=== PATIENT | female | born 1950 | race Hispanic/Latino ===

== ENCOUNTER 2018-02-22 20:13 | Emergency (ER) | payer MEDICARE, BC ==
[2018-02-22 20:29] VITALS: TEMP 98.2
--- NOTE | 2018-02-22 20:53 | ED PDOC ---
HPI: Hypertension/Hypotension Time Seen by Provider: 02/22/18 20:40 Chief Complaint (Nursing): High Blood Pressure Chief Complaint (Provider): my pressure is high History Per: Patient, Family (brother) History/Exam Limitations: no limitations Onset/Duration Of Symptoms: Days (2-3 days), Intermittent Episodes Associated Symptoms: Other (jaw discomfort). denies: Chest Pain, Dyspnea, Dizziness, Blurred Vision, Headache Quality Of Symptoms: Asymptomatic Severity: Mild Exacerbating Factor(s): Pos: None Additional Complaint(s): 67yo female presents w concern her BP is running 180+ systolic at home. States went to [facility] for ear ache about 2 weeks ago, found to have elev BP 160/90, now has been checking it frequently at home and been gradually elevating, now 180+ at home. She notes mild L jaw discomfort but thinks that could be due to dental work recently performed. Denies taking decongestants, supplements or prior BP medications. Only takes crestor daily. Denies chest pain, SOB, headache, orthopnea, edema or exercise intolerance. Past Medical History Reviewed: Historical Data, Nursing Documentation, Vital Signs Vital Signs: Last Vital Signs Temp 98.2 F 02/22/18 20:24 Pulse 89 02/22/18 20:24 Resp 16 02/22/18 20:24 BP 181/83 H 02/22/18 20:24 Pulse Ox 100 02/22/18 20:24 - Medical History PMH: Hypercholesterolemia Denies: HTN - Surgical History Other surgeries: hysterectomy - Family History Family History: States: Unknown Family Hx - Living Arrangements Living Arrangements: With Family - Immunization History Hx Tetanus Toxoid Vaccination: No Hx Influenza Vaccination: No Hx Pneumococcal Vaccination: No - Home Medications Home Medications: Ambulatory Orders Medication Instructions Recorded hydroCHLOROthiazide [Microzide] 12.5 mg PO DAILY #14 cap 02/22/18 - Allergies Allergies/Adverse Reactions: Allergies Allergy/AdvReac Type Severity Reaction Status Date / Time No Known Allergies Allergy Verified 02/22/18 20:24 Review of Systems Constitutional: Negative for: Fever, Chills Eyes: Negative for: Vision Change ENT: Negative for: Nose Discharge, Throat Pain Cardiovascular: Negative for: Chest Pain, Palpitations, Orthopnea Respiratory: Negative for: Cough, Shortness of Breath Gastrointestinal: Negative for: Nausea, Vomiting Genitourinary Female: Negative for: Dysuria Musculoskeletal: Negative for: Neck Pain, Shoulder Pain, Arm Pain, Back Pain, Leg Pain Skin: Negative for: Rash, Lesions, Jaundice Neurological: Negative for: Weakness, Numbness, Headache, Dizziness Psych: Negative for: Suicidal ideation Physical Exam - Reviewed Nursing Documentation Reviewed: Yes Vital Signs Reviewed: Yes - Physical Exam Appears: Positive for: Well, Non-toxic, No Acute Distress Head Exam: Positive for: ATRAUMATIC, NORMAL INSPECTION, NORMOCEPHALIC Skin: Positive for: Normal Color, Warm, DRY Eye Exam: Positive for: EOMI, Normal appearance, PERRL ENT: Positive for: TM Is/Are (cerumen). Negative for: Pharyngeal Erythema Neck: Positive for: Normal, Painless ROM Cardiovascular/Chest: Positive for: Regular Rate, Rhythm Respiratory: Positive for: Normal Breath Sounds. Negative for: Decreased Breath Sounds Gastrointestinal/Abdominal: Positive for: Normal Exam, Soft. Negative for: Tenderness Back: Positive for: Normal Inspection Extremity: Positive for: Normal ROM. Negative for: Tenderness, Swelling Neurologic/Psych: Positive for: Alert, Oriented. Negative for: Motor/Sensory Deficits - Laboratory Results Result Diagrams: 02/22/18 20:55 02/22/18 20:55 - ECG ECG: Positive for: Interpreted By Me ECG Rhythm: Positive for: Normal ST Segment, Sinus Rhythm. Negative for: ST/T Changes Rate: 78 O2 Sat by Pulse Oximetry: 100 Pulse Ox Interpretation: Normal Medical Decision Making Medical Decision Making: pt mostly asymptomatic other than vague jaw symptoms. check basic labs, EKG and trop, initiate clonidine 0.1mg and monitor. labs and EKG unremarkable clonidine 0.1mg given w improvement of BP, Rx low dose HCTZ and followup PMD 1 week for re-eval. Asymptomatic on discharge. Disposition - Clinical Impression Clinical Impression: Elevated blood pressure reading - Patient ED Disposition Is Patient to be Admitted: No Counseled Patient/Family Regarding: Studies Performed, Diagnosis, Need For Followup, Rx Given - Disposition Disposition: Routine/Home Disposition Time: 21:39 Condition: STABLE Additional Instructions: followup with your doctor within next 10 days, take medication once a day, return to ER for any worse or new symptoms. Prescriptions: hydroCHLOROthiazide [Microzide] 12.5 mg PO DAILY #14 cap Instructions: Hypotension (ED), Hypertension (ED) Forms: [employer] (Polish)
[2018-02-22 21:16] LABS: BASO % 0.5 % (0.0-2.0); EOS # 0.1 K/uL (0.0-0.7); EOS % 0.8 % (0.0-4.0); HEMOGLOBIN 11.9 g/dL (12.0-16.0); LYMPH # 1.1 K/uL (1.0-4.3); LYMPH % 15.8 % (20.0-40.0); MEAN CELL VOLUME 91.5 fl (81.0-99.0); MEAN CORPUSCULAR HEMOGLOBIN 30.8 pg (27.0-31.0); MEAN CORPUSCULAR HGB CONC 33.6 g/dL (33.0-37.0); MEAN PLATELET VOLUME 8.7 fl (7.2-11.7); MONO # 0.5 K/uL (0.0-0.8); MONO % 6.4 % (0.0-10.0); NEUT # 5.4 K/uL (1.8-7.0); NEUT % 76.5 % (50.0-75.0); NRBC % 0.1 % (0.0-0.0); RBC 3.88 Mil/uL (3.80-5.20); RED CELL DISTRIBUTION WIDTH 13.7 % (11.5-14.5); WHITE BLOOD COUNT 7.1 K/uL (4.8-10.8)
[2018-02-22 21:25] LABS: BLOOD UREA NITROGEN 13 mg/dl (7-17); CALCIUM 9.1 mg/dL (8.4-10.2); GFR NON-AFRICAN AMERICAN > 60
[2018-02-22 21:38] LABS: B-TYPE NATRIURETIC PEPTIDE 490 pg/ml (0-900)
[2018-02-22 21:39] VITALS: PULSE 78; O2SAT 100
[2018-02-22 21:50] VITALS: BP 162/85; RESP 17
--- NOTE | 2018-02-23 10:39 | CARD ---
APPROVED REPORT Date of service: 02/22/2018 EKG Measurement Heart [id number] <Conclusion> Normal sinus rhythm Normal ECG
== END 2018-02-22 21:51 | disposition home or self-care (01) ==
LOC: H.ER 20:13
DX: I10 Essential (primary) hypertension (principal)

== ENCOUNTER 2018-02-27 09:39 | Emergency (ER) | payer MEDICARE, BC ==
[2018-02-27 09:44] VITALS: TEMP 98.2
--- NOTE | 2018-02-27 10:06 | ED PDOC ---
HPI: General Adult Time Seen by Provider: 02/27/18 09:48 History Per: Patient Onset/Duration Of Symptoms: Days (1) Current Symptoms Are (Timing): Still Present Severity: Mild Additional Complaint(s): Left sided jaw pain since last night. Denies injury. Denies toothache. Denies chest pain or SOB. Seen here 02/21 for HTN and started on BP meds. Denies headache or dizziness. Past Medical History Vital Signs: Last Vital Signs Temp 98.2 F 02/27/18 09:43 Pulse 98 H 02/27/18 09:43 Resp 21 02/27/18 09:43 BP 195/94 H 02/27/18 09:43 Pulse Ox 99 02/27/18 09:43 - Medical History PMH: HTN Denies: Hypercholesterolemia - Family History Family History: States: Unknown Family Hx - Immunization History Hx Tetanus Toxoid Vaccination: No Hx Influenza Vaccination: No Hx Pneumococcal Vaccination: No - Home Medications Home Medications: Ambulatory Orders Medication Instructions Recorded hydroCHLOROthiazide [Microzide] 12.5 mg PO DAILY #14 cap 02/22/18 - Allergies Allergies/Adverse Reactions: Allergies Allergy/AdvReac Type Severity Reaction Status Date / Time No Known Allergies Allergy Verified 02/22/18 20:24 Review of Systems ROS Statement: Except As Marked, All Systems Reviewed And Found Negative ENT: Positive for: Other (Jaw pain) Cardiovascular: Negative for: Chest Pain Respiratory: Negative for: Shortness of Breath Neurological: Negative for: Weakness, Numbness, Headache Physical Exam - Reviewed Nursing Documentation Reviewed: Yes Vital Signs Reviewed: Yes - Physical Exam Appears: Positive for: Non-toxic, No Acute Distress Head Exam: Positive for: ATRAUMATIC, NORMAL INSPECTION, NORMOCEPHALIC Skin: Positive for: Normal Color, Warm, DRY Eye Exam: Positive for: EOMI, Normal appearance, PERRL ENT: Positive for: Normal ENT Inspection, Other (No mandibular tenderness or deformity) Neck: Positive for: Normal, Painless ROM Cardiovascular/Chest: Positive for: Regular Rate, Rhythm Respiratory: Positive for: CNT, Normal Breath Sounds Gastrointestinal/Abdominal: Positive for: Normal Exam, Soft Back: Positive for: Normal Inspection Extremity: Positive for: Normal ROM Neurologic/Psych: Positive for: Alert, Oriented - Laboratory Results Result Diagrams: 02/27/18 10:45 02/27/18 10:45 - ECG O2 Sat by Pulse Oximetry: 99 Disposition - Clinical Impression Clinical Impression: Hypertension - Patient ED Disposition Is Patient to be Admitted: No Counseled Patient/Family Regarding: Studies Performed, Diagnosis, Need For Followup - Disposition Disposition: Routine/Home Disposition Time: 11:59 Condition: FAIR Instructions: High Blood Pressure in Adults
[2018-02-27 11:04] LABS: BASO % 0.3 % (0.0-2.0); EOS % 0.2 % (0.0-4.0); HEMOGLOBIN 12.6 g/dL (12.0-16.0); LYMPH # 0.8 K/uL (1.0-4.3); LYMPH % 13.4 % (20.0-40.0); MEAN CELL VOLUME 91.9 fl (81.0-99.0); MEAN CORPUSCULAR HEMOGLOBIN 31.1 pg (27.0-31.0); MEAN CORPUSCULAR HGB CONC 33.9 g/dL (33.0-37.0); MONO # 0.4 K/uL (0.0-0.8); MONO % 5.9 % (0.0-10.0); NEUT # 4.8 K/uL (1.8-7.0); NEUT % 80.2 % (50.0-75.0); NRBC % 0.1 % (0.0-0.0); RBC 4.04 Mil/uL (3.80-5.20); RED CELL DISTRIBUTION WIDTH 13.4 % (11.5-14.5)
[2018-02-27 11:18] LABS: ALB/GLOB RATIO 1.3 (1.0-2.1); ALBUMIN 4.4 g/dL (3.5-5.0); ALT/SGPT 29 U/L (9-52); AST/SGOT 29 U/L (14-36); BLOOD UREA NITROGEN 11 mg/dl (7-17); CALCIUM 9.6 mg/dL (8.4-10.2); GFR NON-AFRICAN AMERICAN > 60
[2018-02-27 12:17] VITALS: BP 142/87; PULSE 72; RESP 16; O2SAT 100
--- NOTE | 2018-02-27 19:04 | CARD ---
APPROVED REPORT Date of service: 02/27/2018 EKG Measurement Heart [id number] ND 110P0 [id number] <Conclusion> Sinus rhythm with short ND with premature supraventricular complexes Nonspecific ST and T wave abnormality Abnormal ECG
== END 2018-02-27 12:10 | disposition home or self-care (01) ==
LOC: H.ER 09:39
DX: I10 Essential (primary) hypertension (principal)

== ENCOUNTER 2018-03-11 16:58 | Emergency (ER) | payer MEDICARE, BC ==
[2018-03-11 17:07] VITALS: O2SAT 100
[2018-03-11 17:36] LABS: BASO % 0.5 % (0.0-2.0); EOS % 0.2 % (0.0-4.0); HEMOGLOBIN 12.8 g/dL (12.0-16.0); LYMPH # 1.1 K/uL (1.0-4.3); LYMPH % 11.6 % (20.0-40.0); MEAN CELL VOLUME 89.5 fl (81.0-99.0); MEAN CORPUSCULAR HEMOGLOBIN 30.3 pg (27.0-31.0); MEAN CORPUSCULAR HGB CONC 33.8 g/dL (33.0-37.0); MEAN PLATELET VOLUME 8.3 fl (7.2-11.7); MONO # 0.7 K/uL (0.0-0.8); MONO % 7.2 % (0.0-10.0); NEUT # 7.3 K/uL (1.8-7.0); NEUT % 80.5 % (50.0-75.0); RBC 4.22 Mil/uL (3.80-5.20); RED CELL DISTRIBUTION WIDTH 13.2 % (11.5-14.5); WHITE BLOOD COUNT 9.1 K/uL (4.8-10.8)
[2018-03-11 17:49] LABS: BLOOD UREA NITROGEN 11 mg/dl (7-17); CALCIUM 9.7 mg/dL (8.4-10.2); GFR NON-AFRICAN AMERICAN > 60
--- NOTE | 2018-03-11 17:55 | ED PDOC ---
HPI: Chest Pain Time Seen by Provider: 03/11/18 17:20 Chief Complaint (Nursing): Chest Pain Chief Complaint (Provider): Chest discomfort History Per: Patient History/Exam Limitations: no limitations Onset/Duration Of Symptoms: Intermittent Episodes (since December 2017) Current Symptoms Are (Timing): Better Quality: Pressure Additional History Per: Patient Additional Complaint(s): 67yo female, with history of hypertension, comes to ER reporting intermittent episodes of chest discomfort, present since December 2017. Patient states she initially had the chest discomfort as well as left sided jaw discomfort for which she was evaluated in this ER twice. Patient was noted to have hypertension during her first ER visit and was started on anti-hypertensive medications. Patient states the discomfort "cleared up" but upon visit to her PMD 3 days ago, she had the discomfort and was given Cipro as well as Losartan 5mg. Patient states upon taking the Cipro dose this morning, she felt the "discomfort" in her chest and left jaw, prompting her visit. Otherwise, patient denies any fever, chills, shortness of breath, vomiting, cough, or syncope. She has no additional complaints. PMD: Dr. Hopper Past Medical History Reviewed: Historical Data, Nursing Documentation, Vital Signs Vital Signs: Last Vital Signs Temp 98.1 F 03/11/18 17:07 Pulse 78 03/11/18 17:33 Resp 16 03/11/18 17:20 BP 146/86 03/11/18 17:33 Pulse Ox 100 03/11/18 17:20 - Medical History PMH: HTN Denies: Hypercholesterolemia - Surgical History Surgical History: No Surg Hx - Family History Family History: States: [place] (father due to [place] at age 53), Hypertension - Living Arrangements Living Arrangements: With Family - Social History Current smoker - smoking cessation education provided: No Alcohol: None Drugs: Denies - Immunization History Hx Tetanus Toxoid Vaccination: No Hx Influenza Vaccination: No Hx Pneumococcal Vaccination: No - Home Medications Home Medications: Ambulatory Orders Medication Instructions Recorded hydroCHLOROthiazide [Microzide] 12.5 mg PO DAILY #14 cap 02/22/18 - Allergies Allergies/Adverse Reactions: Allergies Allergy/AdvReac Type Severity Reaction Status Date / Time No Known Allergies Allergy Verified 02/22/18 20:24 VALENTINO Risk Score for UA/NSTEMI - VALENTINO Risk Score Age > 64: YES 3 or more CAD Risk Factors: NO Known CAD (Stenosis greater than 50%): NO Aspirin use in past 7 days: NO Severe Angina: NO EKG ST changes greater than 0.5mm: NO Positive Cardiac Marker: NO VALENTINO Score: 1 Risk %: 5% Review of Systems ROS Statement: Except As Marked, All Systems Reviewed And Found Negative Constitutional: Negative for: Fever, Chills Cardiovascular: Positive for: Other (chest discomfort) Respiratory: Negative for: Cough, Shortness of Breath Gastrointestinal: Negative for: Nausea, Vomiting Neurological: Negative for: Other (syncope) Physical Exam - Reviewed Nursing Documentation Reviewed: Yes Vital Signs Reviewed: Yes - Physical Exam Appears: Positive for: Non-toxic, No Acute Distress Head Exam: Positive for: ATRAUMATIC, NORMAL INSPECTION, NORMOCEPHALIC Skin: Positive for: Normal Color, Warm, DRY Eye Exam: Positive for: EOMI, Normal appearance, PERRL ENT: Positive for: Normal ENT Inspection Neck: Positive for: Normal, Painless ROM, Supple Cardiovascular/Chest: Positive for: Regular Rate, Rhythm, Chest Non Tender. Negative for: Murmur Respiratory: Positive for: Normal Breath Sounds. Negative for: Wheezing, Resp iratory Distress Pulses-Radial (R): 2+ Gastrointestinal/Abdominal: Positive for: Normal Exam, Soft. Negative for: Tenderness, Mass, Rebound Back: Positive for: Normal Inspection Extremity: Positive for: Normal ROM. Negative for: Pedal Edema, Deformity Neurologic/Psych: Positive for: Alert, Oriented. Negative for: Motor/Sensory Deficits - Laboratory Results Result Diagrams: 03/11/18 17:32 03/11/18 17:32 - ECG ECG: Positive for: Interpreted By Me, Viewed By Me ECG Rhythm: Positive for: Normal QRS, Sinus Rhythm, Nonspecific Changes (ST) Rate: 88 O2 Sat by Pulse Oximetry: 100 (RA) Pulse Ox Interpretation: Normal - Radiology X-Ray: Interpreted by Me, Viewed By Me X-Ray Interpretation: No Acute Disease - Progress Re-evaluation Time: 18:45 Condition: Re-examined, Improved Medical Decision Making Medical Decision Making: Impression: 67yo female with "chest discomfort" present intermittently for 3 months Differential: Very atypical ACS, pneumonia, musculoskeletal pain, esophagitis Plan: -- EKG -- CXR -- Labs 1810 Labs reviewed, no clinically significant abnormalities. 1900 Chest x-ray reviewed, no acute findings. Patient informed of labs and imaging reports. Patient stable for discharge home, instructed to follow up with PMD in 2-3 days. Scribe Attestation: Documented by Lizz Oliva, acting as a scribe for Elton Ramirez MD Provider Scribe Attestation: All medical record entries made by the Scribe were at my direction and personally dictated by me. I have reviewed the chart and agree that the record accurately reflects my personal performance of the history, physical exam, medical decision making, and the department course for this patient. I have also personally directed, reviewed, and agree with the discharge instructions and disposition. Disposition - Clinical Impression Clinical Impression: Chest pain - Patient ED Disposition Is Patient to be Admitted: No Doctor Will See Patient In The: Office Counseled Patient/Family Regarding: Studies Performed, Diagnosis, Need For Followup - Disposition Referrals: Non [facility] Provider, [Primary Care Provider] - Disposition: Routine/Home Disposition Time: 18:55 Condition: STABLE Additional Instructions: KHANH PERKINS, thank you for letting us take care of you today. Your provider was Elton Ramirez MD and you were treated for CHEST DISCOMFORT. The emergency medical care you received today was directed at your acute symptoms. If you were prescribed any medication, please fill it and take as directed. It may take several days for your symptoms to resolve. Return to the Emergency Department if your symptoms worsen, do not improve, or if you have any other problems. Please contact your doctor or call one of the physicians/clinics you have been referred to that are listed on the Patient Visit Information form that is included in your discharge packet. Bring any paperwork you were given at discharge with you along with any medications you are taking to your follow up visit. Our treatment cannot replace ongoing medical care by a primary care provider outside of the emergency department. Thank you for allowing the [facility] team to be part of your care today. If you had an X-Ray or CT scan: A Radiologist will review the ED reading if any change in treatment is needed we will contact you. If you had a blood, urine, or wound culture: It will take several days for the results, if any change in treatment is needed we will contact you. If you had an STI test: It will take 48 hours for the results. Please call after 1 week if you have not heard back. Instructions: Chest Pain Forms: [employer] (Ghanaian)
[2018-03-11 19:05] VITALS: BP 142/84; PULSE 82; RESP 20; TEMP 98.6
--- NOTE | 2018-03-11 19:06 | RAD ---
Date of service: 03/11/2018 HISTORY: Chest pain COMPARISON: No prior FINDINGS: LUNGS: No active pulmonary disease. PLEURA: No significant pleural effusion identified, no pneumothorax apparent. CARDIOVASCULAR: Mild aortic atherosclerotic calcification present. Normal cardiac size. No pulmonary vascular congestion. OSSEOUS STRUCTURES: No significant abnormalities. VISUALIZED UPPER ABDOMEN: Normal. OTHER FINDINGS: None. IMPRESSION: No active disease.
--- NOTE | 2018-03-12 22:56 | CARD ---
APPROVED REPORT Date of service: 03/11/2018 EKG Measurement Heart [id number] MD 108P4 [id number] <Conclusion> Sinus rhythm with short MD with premature atrial complexes Rightward axis ST & T wave abnormality, consider inferior ischemia Abnormal ECG
== END 2018-03-11 19:05 | disposition home or self-care (01) ==
LOC: SUPCPDRO 16:58 → H.ER 16:58
DX: R07.89 Other chest pain (principal); I10 Essential (primary) hypertension

== ENCOUNTER 2018-03-13 14:55 | Emergency (ER) | payer MEDICARE, BC ==
[2018-03-13 15:29] VITALS: RESP 18; TEMP 98.2; O2SAT 100
[2018-03-13 16:39] VITALS: BP 155/79; PULSE 72
--- NOTE | 2018-03-13 17:10 | ED PDOC ---
HPI: Chest Pain Time Seen by Provider: 03/13/18 16:09 Chief Complaint (Nursing): Chest Pain Chief Complaint (Provider): Chest Pain History Per: Patient History/Exam Limitations: no limitations Onset/Duration Of Symptoms: Days (x3 weeks) Current Symptoms Are (Timing): Still Present Additional Complaint(s): Debbi Hunt is a 67 year old female with a past medical history of Hypertension, who presents to the emergency department complaining of intermittent left jaw pain for about x3 weeks. Patient was seen here x3 times for the same pain and underwent cardiac work up and was discharged home. Patient is currently undergoing a work up for this with PMD and plate worker helper who has scheduled a stress test. The symptoms occurred today and prompted her to come in today. Patient states she has also has pain in upper part of chest and a bit of pain that radiates to the ear. She denies shortness of breath, light headedness, weakness but she is able to continue with her activities. PMD: Dr. goldman Past Medical History Reviewed: Historical Data, Nursing Documentation, Vital Signs Vital Signs: Last Vital Signs Temp 98.2 F 03/13/18 15:25 Pulse 72 03/13/18 16:38 Resp 18 03/13/18 16:38 BP 155/79 H 03/13/18 16:38 Pulse Ox 100 03/13/18 16:38 - Medical History PMH: HTN Denies: Hypercholesterolemia - Surgical History Surgical History: No Surg Hx - Family History Family History: States: Unknown Family Hx, [place] (father due to [place] at age 53), Hypertension - Immunization History Hx Tetanus Toxoid Vaccination: No Hx Influenza Vaccination: No Hx Pneumococcal Vaccination: No - Home Medications Home Medications: Ambulatory Orders Medication Instructions Recorded RX: hydroCHLOROthiazide [Microzide] 12.5 mg PO DAILY #14 cap 02/22/18 - Allergies Allergies/Adverse Reactions: Allergies Allergy/AdvReac Type Severity Reaction Status Date / Time No Known Allergies Allergy Verified 03/13/18 15:23 Review of Systems ROS Statement: Except As Marked, All Systems Reviewed And Found Negative ENT: Positive for: Ear Pain, Other (jaw pain) Cardiovascular: Positive for: Chest Pain Respiratory: Negative for: Shortness of Breath Neurological: Negative for: Weakness, Other (lightheadedness ) Physical Exam - Reviewed Nursing Documentation Reviewed: Yes Vital Signs Reviewed: Yes - Physical Exam Appears: Positive for: Well, No Acute Distress (anxious) Head Exam: Positive for: ATRAUMATIC, NORMOCEPHALIC Skin: Positive for: Warm, Dry Eye Exam: Positive for: EOMI, PERRL ENT: Positive for: TM Is/Are (normal bilaterally ). Negative for: Other (buits in neck) Neck: Positive for: Normal, Painless ROM, Supple, Trachea Midline Cardiovascular/Chest: Positive for: Regular Rate, Rhythm. Negative for: Murmur Respiratory: Positive for: Normal Breath Sounds. Negative for: Wheezing Gastrointestinal/Abdominal: Positive for: Soft. Negative for: Tenderness Back: Positive for: Normal Inspection. Negative for: Muscle Spasm Extremity: Positive for: Normal ROM. Negative for: Deformity Lymphatic: Negative for: Adenopathy Neurologic/Psych: Positive for: Alert. Negative for: Motor/Sensory Deficits - ECG O2 Sat by Pulse Oximetry: 100 (RA) Pulse Ox Interpretation: Normal Medical Decision Making Medical Decision Making: Time: 16:09 Impression: Left jaw pain Provider reviewed previous charts that demonstrate episodes of elevated blood pressure, but otherwise normal cardiac work up. Will reassess and if blood pressure is normalized, she will be discharged and will be instructed to continue outpatient work up. 1640 BP normalized without intervention. DW pt findings and advised to continue workup as scheduled with PMD. Scribe Attestation: Documented by Nicolas Huston, acting as a scribe for Lilian Cabral MD. Provider Scribe Attestation: All medical record entries made by the Scribe were at my direction and personally dictated by me. I have reviewed the chart and agree that the record accurately reflects my personal performance of the history, physical exam, medical decision making, and the department course for this patient. I have also personally directed, reviewed, and agree with the discharge instructions and disposition. Disposition - Clinical Impression Clinical Impression: Jaw pain, Hypertension - Disposition Disposition: Routine/Home Disposition Time: 16:45 Condition: IMPROVED Additional Instructions: PLEASE FOLLOW UP WITH YOUR REGULAR DOCTOR IN 1-2 DAYS FOR FURTHER EVALUATION. YOU MAY NEED NEUROLOGY WORKUP IF YOUR LEAD PRESS OPERATOR RULES ANY OTHER SOURCE FOR YOUR PAIN. Instructions: High Blood Pressure (DC) Forms: [employer] ([place]ian)
== END 2018-03-13 17:00 | disposition home or self-care (01) ==
LOC: H.ER 14:55
DX: R68.84 Jaw pain (principal); I10 Essential (primary) hypertension